=== PATIENT | male | born 1945 | race Caucasian/White ===

== ENCOUNTER 2017-06-10 08:22 | Day surgery (SDC) | payer BC, OTHER ==
[2017-06-08 11:42] VITALS: BMI 28.6
[2017-06-10] MEDS ORDERED: PROPOFOL 20 ML ONE ×2 (08:25)
[2017-06-10 08:41] VITALS: TEMP 97.7
[2017-06-10 09:31] VITALS: BP 115/69; PULSE 52
== END 2017-06-10 09:40 | disposition home or self-care (01) ==
LOC: FASU-ENDO 08:22
PROVIDERS: ATTEND Internal Medicine Gastroenterology
PROC: 0DJD8ZZ Inspection of Lower Intestinal Tract, Via Natural or Artificial Opening Endoscopic (ICD-10-PCS; principal; 2017-06-10 08:53)
DX: Z86.010 Personal history of colon polyps (principal)